=== PATIENT | male | born 1960 | race Hispanic/Latino ===

== ENCOUNTER 2019-04-20 10:08 | Outpatient (CLI) | payer OTHER ==
[2019-04-20 10:29] LABS: Estimated GFR-MDRD - POC Greater than 90
--- NOTE | 2019-04-20 12:34 | CT ---
CT ABDOMEN AND PELVIS WITH AND WITHOUT IV CONTRAST: HISTORY: Hematuria. FINDINGS: There are dependent changes in the lung bases. No calcified gallstones are seen. The liver, spleen, p ancreas and adrenal glands are normal. No free air, free fluid or lymphadenopathy is seen in the abdo men or pelvis. No calculi are noted in the kidneys, ureters or the urinary bladder. Post contrast images demonstrate no evidence of renal mass. There is normal contrast excretion into the right ureter, urinary bladder and left renal pelvis. There is dilatation of the left renal pelvis. No right-sided hydroureteroneph rosis is seen. The urinary bladder is grossly unremarkable. A normal appearing appendix is seen. The small bowel loops are not abnormally dilated. There is fecal material in the colon. There are vascular calcifications without evidence of aneurysmal dilatation o f the abdominal aorta. Degenerative changes are present in the spine. IMPRESSION: 1. No evidence of urinary tract calculi or renal mass. 2. Probable left ureteropelvic junction obstruction. POS: [facility]TA
== END 2019-04-20 10:09 | disposition home or self-care (01) ==
LOC: BICCT 10:08
PROVIDERS: ATTEND Urology
DX: N43.3 Hydrocele, unspecified (principal); I86.1 Scrotal varices; R31.29 Other microscopic hematuria; N28.1 Cyst of kidney, acquired
CPT/HCPCS: 74178; 82565

== ENCOUNTER 2019-07-04 10:05 | Outpatient (CLI) | payer OTHER ==
--- NOTE | 2019-07-04 14:03 | NM ---
EXAM: Nuclear medicine renal scan with Lasix COMPARISON: None HISTORY: Enlarged prostate with lower urinary tract symptoms. TECHNIQUE: A nuclear medicine renal exam was administered after administration of 7.2 mCi of techneti um 99m MAG3. 40 mg of Lasix was given 15 minutes prior to injection of the MAG3. FINDINGS: Time to peak is 2.4 minutes on the left and 2.25 minutes on the right. Time of one half max is 16.1 minutes on the left and 8.1 minutes on the right. The renal curves are both normal in appearance without evidence of obstruction. The angiographic phase shows a symmetric appearance of the kidneys. There is symmetric excretion by the kidneys. Split renal function is 62% on the left and 38% on the right. IMPRESSION: Decreased function of the right kidney compared to the left without evidence of obstruct ion.
== END 2019-07-04 10:06 | disposition home or self-care (01) ==
LOC: NM 10:05
PROVIDERS: ATTEND Urology
DX: N40.1 Benign prostatic hyperplasia with lower urinary tract symptoms (principal)
CPT/HCPCS: 78708; A4641; A9562

== ENCOUNTER 2022-05-27 07:57 | Outpatient (CLI) | payer OTHER | END 2022-05-27 07:58 | disposition home or self-care (01) | LOC: BICCT 07:57 | PROVIDERS: ATTEND Urology | DX: R31.29 Other microscopic hematuria (principal); N13.5 Crossing vessel and stricture of ureter without hydronephrosis; N28.1 Cyst of kidney, acquired; I86.1 Scrotal varices; N43.2 Other hydrocele; J98.11 Atelectasis; K59.00 Constipation, unspecified | CPT/HCPCS: 74178; 76870; 93976 ==

== ENCOUNTER 2022-07-14 09:42 | Outpatient (CLI) | payer OTHER | END 2022-07-14 09:43 | disposition home or self-care (01) | LOC: NM 09:42 | PROVIDERS: ATTEND Urology | DX: N13.5 Crossing vessel and stricture of ureter without hydronephrosis (principal); R94.4 Abnormal results of kidney function studies | CPT/HCPCS: 78708; A4641; A9562 ==

== ENCOUNTER 2025-02-15 12:29 | Outpatient (CLI) | payer MEDICARE ==
[2025-02-15 14:18] LABS: Hematocrit 40.9 % (42.0-52.0); Hemoglobin 13.8 g/dL (14.0-18.0); Mean Corpuscular Hemoglobin 29.8 pg (27.0-31.0); Mean Corpuscular Volume 88.3 fL (78.0-98.0); Platelet Count 249 10x3/uL (130-400); Red Blood Cell (RBC) Count 4.63 mill/uL (4.70-6.10); White Blood Cell (WBC) Count 8.79 10x3/uL (4.8-10.8)
[2025-02-15 14:32] LABS: INR-International Normal Ratio 1.0; Prothrombin Time 12.9 sec (12.0-14.7)
[2025-02-15 14:33] LABS: PTT 29.5 sec (22.9-36.1)
[2025-02-15 14:39] LABS: Anion Gap 13 mmol/L (10-20); BUN (Urea Nitrogen) 19 mg/dL (8.4-25.7); Calc. Creatinine Clearance 0 mL/min (70-130); Calcium 10.1 mg/dL (7.8-10.44); Carbon Dioxide 25 mmol/L (23-31); Chloride 102 mmol/L (98-107); Glucose 246 mg/dL (80-115); Potassium 3.8 mmol/L (3.5-5.1); Sodium 136 mmol/L (136-145)
[2025-02-15 14:45] LABS: Bacteria/HPF None Seen HPF (None Seen); Glucose, Urine (Dipstick) 100 mg/dL (Negative); Leukocyte Negative Leu/uL (Negative); Protein, Urine (Dipstick) Negative (Neg-Trace); RBC/HPF 0-3 HPF (0-3); Specific Gravity, Urine 1.016 (1.002-1.036); WBC/HPF 0-3 HPF (0-3)
== END 2025-02-15 12:30 | disposition home or self-care (01) ==
LOC: LABBT 12:29
PROVIDERS: ATTEND Urology
DX: Z01.818 Encounter for other preprocedural examination (principal); N40.1 Benign prostatic hyperplasia with lower urinary tract symptoms; N43.3 Hydrocele, unspecified; I86.1 Scrotal varices; E11.65 Type 2 diabetes mellitus with hyperglycemia; R81 Glycosuria; N28.1 Cyst of kidney, acquired; N13.5 Crossing vessel and stricture of ureter without hydronephrosis; R31.29 Other microscopic hematuria; R80.9 Proteinuria, unspecified; I27.20 Pulmonary hypertension, unspecified; N47.1 Phimosis; Z91.199 Patient's noncompliance with other medical treatment and regimen due to unspecified reason
CPT/HCPCS: 80048; 81001; 85027; 85610; 85730; 87086; 93005; G0103; 93010

== ENCOUNTER 2025-03-08 12:26 | Outpatient (CLI) | payer MEDICARE ==
[2025-03-08 14:10] LABS: #Basophils 0.04 10x3/uL (0.0-0.2); #Eosinophils 0.12 10x3/uL (0.0-0.7); #Monocytes 0.62 10x3/uL (0.11-0.59); #Neutrophils 5.04 10x3/uL (1.40-6.50); %Basophils 0.5 % (0.0-1.0); %Eosinophils 1.5 % (0.0-10.0); %Lymphocytes 24.8 % (21.0-51.0); %Monocytes 7.9 % (0.0-10.0); %Neutrophils 64.7 % (42.0-75.0); Hematocrit 42.9 % (42.0-52.0); Hemoglobin 14.3 g/dL (14.0-18.0); Mean Corpuscular Hemoglobin 29.4 pg (27.0-31.0); Mean Corpuscular Volume 88.3 fL (78.0-98.0); Platelet Count 259 10x3/uL (130-400); Red Blood Cell (RBC) Count 4.86 mill/uL (4.70-6.10); White Blood Cell (WBC) Count 7.81 10x3/uL (4.8-10.8)
[2025-03-08 14:27] LABS: Anion Gap 14 mmol/L (10-20); BUN (Urea Nitrogen) 15 mg/dL (8.4-25.7); Calc. Creatinine Clearance 0 mL/min (70-130); Calcium 10.7 mg/dL (7.8-10.44); Carbon Dioxide 27 mmol/L (23-31); Chloride 104 mmol/L (98-107); Glucose 195 mg/dL (80-115); INR-International Normal Ratio 1.0; Potassium 3.6 mmol/L (3.5-5.1); Prothrombin Time 13.4 sec (12.0-14.7); Sodium 141 mmol/L (136-145)
[2025-03-08 14:29] LABS: Bacteria/HPF None Seen HPF (None Seen); Glucose, Urine (Dipstick) 200 mg/dL (Negative); Leukocyte Negative Leu/uL (Negative); Protein, Urine (Dipstick) Negative (Neg-Trace); RBC/HPF 0-3 HPF (0-3); Specific Gravity, Urine 1.011 (1.002-1.036); WBC/HPF 0-3 HPF (0-3)
[2025-03-08 14:53] LABS: PTT 31.5 sec (22.9-36.1)
== END 2025-03-08 12:27 | disposition home or self-care (01) ==
LOC: LABBT 12:26
PROVIDERS: ATTEND Urology
DX: Z01.818 Encounter for other preprocedural examination (principal); N40.1 Benign prostatic hyperplasia with lower urinary tract symptoms; N43.3 Hydrocele, unspecified; I27.20 Pulmonary hypertension, unspecified; I86.1 Scrotal varices; E11.65 Type 2 diabetes mellitus with hyperglycemia; N47.1 Phimosis; N28.1 Cyst of kidney, acquired; N13.5 Crossing vessel and stricture of ureter without hydronephrosis; R81 Glycosuria; R31.29 Other microscopic hematuria; R80.9 Proteinuria, unspecified; Z91.199 Patient's noncompliance with other medical treatment and regimen due to unspecified reason
CPT/HCPCS: 80048; 81001; 85025; 85610; 85730; 87086; 93005; G0103; 93010